=== PATIENT | female | born 1990 | race African-American/Black ===

== ENCOUNTER 2021-11-11 14:07 | Emergency (ER) | payer OTHER ==
[2021-11-11 14:43] VITALS: BP 106/71; PULSE 68; TEMP 98.8; BMI 36.6
== END 2021-11-11 16:30 | disposition home or self-care (01) ==
LOC: JER 14:07
DX: Z11.52 Encounter for screening for COVID-19 (principal)
CPT/HCPCS: 99283-25; C9803; U0003; U0005

== ENCOUNTER 2023-12-30 14:00 | Inpatient (IN) | payer OTHER ==
[2024-01-02] MEDS: ELECTROLYTE-148 SOLN 1,000 ML IV ONE (12:45)
[2024-01-02 13:02] VITALS: BMI 44.9
[2024-01-02] MEDS ORDERED: ceFAZolin SODIUM 1 GM VIAL ONE (13:06)
[2024-01-02] MEDS ORDERED: ONDANSETRON 4 MG/2 ML VIAL ONE (13:06)
[2024-01-02] MEDS ORDERED: METOCLOPRAMIDE HCL INJECTION 10 MG/2 ML VIAL ONE (13:06)
[2024-01-02] MEDS ORDERED: DEXAMETHASONE SOD PHOSPHATE 4 MG/1 ML VIAL ONE (13:09)
[2024-01-02] MEDS ORDERED: OXYTOCIN 10 UNITS/ML VIAL ONE ×2 (13:09→15:35)
[2024-01-02] MEDS ORDERED: KETOROLAC TROMETHAMINE 30 MG/1 ML VIAL ONE (13:09)
[2024-01-02] MEDS ORDERED: PHENYLEPHRINE HCL 10 MG/1 ML SINGLE DOSE VIAL ONE (13:11)
[2024-01-02 13:14] LABS: BASO % 0.6 % (0-2.0); HEMATOCRIT 31.4 % (32.4-45.2); HEMOGLOBIN 10.3 GM/dL (10.7-15.3); MCH 27.6 pg (25.7-33.7); MCHC 32.8 g/dl (32.0-36.0); MEAN CELL VOLUME 84.2 fl (80-96); MEAN PLT VOLUME 9.5 fl (7.5-11.1); MONO % 9.2 % (3.8-10.2); NEUT % 69.2 % (42.8-82.8); PLATELET COUNT 173 10^3/uL (134-434); RBC 3.73 M/mm3 (3.60-5.2); RDW 14.8 % (11.6-15.6)
[2024-01-02] MEDS: ELECTROLYTE-148 SOLN 1,000 ML IV SCH (13:15)
[2024-01-02] MEDS ORDERED: SODIUM CHLORIDE 0.9% P/F 10 ML VIAL IJ ONE ×2 (13:15→16:51)
[2024-01-02] MEDS ORDERED: ePHEDrine SULFATE 50 MG/1 ML AMPULE ONE (13:15)
[2024-01-02 13:20] LABS: INR 0.94 (0.83-1.09); PROTHROMBIN TIME (PATIENT) 10.9 SEC (9.7-13.0)
[2024-01-02 13:22] LABS: ACTIVATED PTT 25.5 SECONDS (25.2-36.5)
[2024-01-02] MEDS ORDERED: morphine SULFATE/PF 1 MG/2 ML (2cc Syringe - QUVA) ONE (13:26)
[2024-01-02] MEDS ORDERED: FENTANYL CITRATE/PF 50 MCG/ML VIAL ONE (13:27)
[2024-01-02 13:37] LABS: POTASSIUM 3.6 mmol/L (3.5-5.1)
[2024-01-02 13:38] LABS: CALCIUM 8.6 mg/dL (8.5-10.1)
[2024-01-02 13:39] LABS: BLOOD UREA NITROGEN 4.2 mg/dL (7-18)
[2024-01-02 13:42] LABS: CREATININE 0.7 mg/dL (0.55-1.3)
[2024-01-02] MEDS: CITRIC ACID/SODIUM CITRATE 30 ML UNIT-DOSE CUP PO ONE (13:50)
[2024-01-02] MEDS ORDERED: ONDANSETRON 4 MG/2 ML VIAL IVPB PRN (15:25)
[2024-01-02 16:02] LABS: CORD HCO3 24.7 mmHg (20-29); CORD PCO2 70.8 mmHg (30-78); CORD pH 7.161 (7.14-7.44)
[2024-01-02 16:02] LABS: CORD BASE EXCESS -5.8 mmol/L (0-2); CORD PCO2 52.3 mmHg (30-78); CORD pH 7.242 (7.14-7.44)
[2024-01-02] MEDS ORDERED: TRANEXAMIC ACID 1000 MG/10 ML VIAL ONE (16:08)
[2024-01-02] MEDS ORDERED: EPINEPHrine/PF 1 MG/1 ML (1:1,000) AMPULE ONE (16:50)
[2024-01-02] MEDS ORDERED: LIDOCAINE HCL/PF 2% SDV 5ML VIAL ONE (16:50)
[2024-01-02] MEDS ORDERED: OXYTOCIN 20 UNITS in 0.9% NS 20 UNIT/1,000 ML INFUS.BAG IV ONE (17:11)
[2024-01-02] MEDS: OXYTOCIN 20 UNITS in 0.9% NS 20 UNIT/1,000 ML INFUS.BAG IV SCH (17:15)
[2024-01-02] MEDS ORDERED: ACETAMINOPHEN INJECTION 100 ML IVPB ONE (19:46)
[2024-01-02] MEDS: ACETAMINOPHEN 1000 MG/100 ML BAG IVPB SCH (19:52)
[2024-01-02] MEDS ORDERED: IBUPROFEN 800 MG/8 ML IJ IVPB ONE (20:07)
[2024-01-02] MEDS: IBUPROFEN 800 MG/8 ML IJ IVPB SCH (20:33)
[2024-01-02 21:45] LABS: HEMATOCRIT 34.2 % (32.4-45.2); HEMOGLOBIN 10.9 GM/dL (10.7-15.3); MCH 27.2 pg (25.7-33.7); MCHC 31.9 g/dl (32.0-36.0); MEAN CELL VOLUME 85.4 fl (80-96); MEAN PLT VOLUME 9.8 fl (7.5-11.1); PLATELET COUNT 182 10^3/uL (134-434); RDW 14.8 % (11.6-15.6)
[2024-01-02 21:50] LABS: INR 0.96 (0.83-1.09); PROTHROMBIN TIME (PATIENT) 11.1 SEC (9.7-13.0)
[2024-01-02 21:52] LABS: ACTIVATED PTT 25.3 SECONDS (25.2-36.5)
[2024-01-02 22:01] LABS: POTASSIUM 4.1 mmol/L (3.5-5.1)
[2024-01-02 22:03] LABS: CALCIUM 8.8 mg/dL (8.5-10.1)
[2024-01-02 22:04] LABS: ALBUMIN 2.5 g/dl (3.4-5.0); BLOOD UREA NITROGEN 4.2 mg/dL (7-18)
[2024-01-02 22:08] LABS: CREATININE 0.7 mg/dL (0.55-1.3)
[2024-01-02 22:09] LABS: BILIRUBIN,TOTAL 0.7 mg/dL (0.2-1)
[2024-01-02 22:29] LABS: ANISOCYTOSIS 1+; MACROCYTOSIS 0
[2024-01-02 22:52] VITALS: RESP 18
[2024-01-02] MEDS: SENNOSIDES/DOCUSATE COMBO (SENNA PLUS) TABLET (UD) PO SCH (23:06)
[2024-01-03] MEDS: SIMETHICONE 80 MG TAB.CHEW (FP) PO PRN (01:56)
[2024-01-03 08:25] LABS: BASO % 0.4 % (0-2.0); EOS % 0.1 % (0-4.5); HEMATOCRIT 30.6 % (32.4-45.2); HEMOGLOBIN 9.7 GM/dL (10.7-15.3); LYMPH % 14.2 % (8-40); MCH 27.1 pg (25.7-33.7); MCHC 31.8 g/dl (32.0-36.0); MEAN CELL VOLUME 85.4 fl (80-96); MEAN PLT VOLUME 9.7 fl (7.5-11.1); MONO % 8.6 % (3.8-10.2); NEUT % 76.7 % (42.8-82.8); PLATELET COUNT 165 10^3/uL (134-434); RBC 3.58 M/mm3 (3.60-5.2); RDW 14.8 % (11.6-15.6); WHITE BLOOD COUNT 12.1 K/mm3 (4.0-10.0)
[2024-01-03] MEDS ORDERED: BISACODYL 10 MG SUPP.RECT RC PRN (15:26)
[2024-01-03] MEDS: oxyCODONE HCL 5 MG TABLET PO PRN (15:50)
[2024-01-03] MEDS ORDERED: ACETAMINOPHEN 325 MG TABLET (FP) PO PRN (16:00)
[2024-01-03] MEDS: IBUPROFEN 600 MG TABLET (FP) PO PRN (16:56)
[2024-01-03] MEDS: ACETAMINOPHEN 500 MG TABLET (FP) PO PRN (18:31)
[2024-01-05 08:44] VITALS: BP 139/89; PULSE 92; TEMP 98
== END 2024-01-05 15:22 | disposition home or self-care (01) | DRG 540 ==
LOC: JLDR 01-02 12:00 → J3W 01-02 22:18
PROVIDERS: ADMIT Obstetrics & Gynecology; ATTEND Obstetrics & Gynecology
PROC: 10D00Z1 Extraction of Products of Conception, Low, Open Approach (ICD-10-PCS; principal; 2024-01-02)
DX: O34.211 Maternal care for low transverse scar from previous cesarean delivery (principal); Z3A.39 39 weeks gestation of pregnancy; Z37.0 Single live birth
CPT/HCPCS: 36415; 36600; 80048; 80053; 82570; 82803; 84156; 84550; 85025; 85610; 85730; 86780; 86850; 86900; 86901; 88307-TC; J0131